=== PATIENT | female | born 1980 | race Caucasian/White ===

== ENCOUNTER 2018-10-06 15:05 | Emergency (ER) | payer BC ==
--- NOTE | 2018-10-06 15:17 | EDM.PDOC ---
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 came in for evaluation Onset: Today Duration: Hour(s):, Getting Worse Location: Reports: Face Quality: Reports: Ache, Pressure, Throbbing Severity: Mild Improves with: Reports: None Worsens with: Reports: None Associated Symptoms: Reports: No Other Symptoms 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: Acetaminophen, NSAIDS - Related Data Allergies Allergy/AdvReac Type Severity Reaction Status Date / Time adhesive Allergy Hives Verified 07/17/16 16:13 Home Meds: Home Meds Ibuprofen 1 tab PO Q6HR PRN 07/17/16 [History] Acetaminophen [Tylenol] 1,300 mg PO BID PRN 10/06/18 [History] Amoxicillin/Potassium Clav [Augmentin 875-125 Tablet] 1 each PO BID 7 Days #14 tablet 10/06/18 [Rx] Past Medical History 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: , 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 - Infectious Disease History Infectious Disease History: Reports: Chicken Pox - Past Surgical History GI Surgical History: Reports: Murtaza Fundoplication Musculoskeletal Surgical History: Reports: Other (See Below) Social & Family History - Caffeine Use Caffeine Use: Reports: Soda ED ROS GENERAL - Review of Systems Review Of Systems: See Below Constitutional: Reports: No Symptoms HEENT: Reports: No Symptoms Respiratory: Reports: No Symptoms Cardiovascular: Reports: No Symptoms Endocrine: Reports: No Symptoms GI/Abdominal: Reports: No Symptoms : Reports: No Symptoms Musculoskeletal: Reports: No Symptoms Skin: Reports: No Symptoms Neurological: Reports: No Symptoms Psychiatric: Reports: No Symptoms Hematologic/Lymphatic: Reports: No Symptoms Immunologic: Reports: No Symptoms ED EXAM, GENERAL - Physical Exam Exam: See Below Exam Limited By: No Limitations General Appearance: Alert Ears: Normal External Exam, Normal Canal, Hearing Grossly Normal, Normal TMs Nose: Normal Inspection Throat/Mouth: Other (Left upper molar pain to palpation and touch) Head: Atraumatic, Normocephalic Neck: Normal Inspection, Supple, Non-Tender, Full Range of Motion Respiratory/Chest: No Respiratory Distress, Lungs Clear, Normal Breath Sounds, No Accessory Muscle Use, Chest Non-Tender Cardiovascular: Normal Peripheral Pulses, Regular Rate, Rhythm, No Edema, No Gallop, No JVD, No Murmur, No Rub GI/Abdominal: Normal Bowel Sounds, Soft, Non-Tender, No Organomegaly, No Distention, No Abnormal Bruit, No Mass Rectal (Female) Exam: Deferred Back Exam: Normal Inspection, Full Range of Motion, NT Extremities: Normal Inspection, Normal Range of Motion, Non-Tender, Normal Capillary Refill, No Pedal Edema Neurological: Alert Psychiatric: Normal Affect, Normal Mood Skin Exam: Warm, Dry, Intact, Normal Color, No Rash Lymphatic: No Adenopathy Departure - Departure Time of Disposition: 15:25 Disposition: Home, Self-Care 01 Condition: Fair Clinical Impression: Pain due to dental caries - Discharge Information *PRESCRIPTION DRUG MONITORING PROGRAM REVIEWED*: No *COPY OF PRESCRIPTION DRUG MONITORING REPORT IN PATIENT JESSE: No (Patient referred to dentist of choice will start on Augmentin 875 twice a day for 10 days patient is to take Motrin 800 every 6 hours when necessary for pain) Referrals: Goldie Alonso PA [Primary Care Provider] -
== END 2018-10-06 15:33 | disposition home or self-care (01) ==
LOC: LL.ED 15:05
DX: K02.9 Dental caries, unspecified (principal); Z79.899 Other long term (current) drug therapy; Z91.09 Other allergy status, other than to drugs and biological substances
CPT/HCPCS: 99282

== ENCOUNTER 2019-10-28 14:57 | Emergency (ER) | payer BC ==
--- NOTE | 2019-10-28 16:15 | EDM.PDOC ---
ED HPI GENERAL MEDICAL PROBLEM - General Chief Complaint: Upper Extremity Injury/Pain Stated Complaint: left shoulder/chest pain Time Seen by Provider: 10/28/19 15:16 Source of Information: Reports: Patient History Limitations: Reports: No Limitations - History of Present Illness INITIAL COMMENTS - FREE TEXT/NARRATIVE: Patient comes to ER for evaluation of left upper back discomfort that radiates through upper chest. Started yesterday. Worse today. Worse when she takes a deep breath or lifts objects/uses left arm. 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 No history of similar pain in past. No other accompanying symptoms. Patient says main reason she came is due to pressure from her Mom to make certain this is not due to heart issues as two family members had heart attacks this past week. Otherwise patient was not planning on being seen for this. No personal history of heart disease. 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 Denies: Shortness of Breath, Cough , Sputum, Hemoptysis Cardiovascular: Reports: Chest Pain. Denies: Edema, Irregular Heart Rate, Lightheadedness, Palpitations, Syncope, Other GI/Abdominal: Reports: No Symptoms Genitourinary: Reports: No Symptoms Musculoskeletal: Reports: Shoulder Pain. Denies: Neck Pain, Arm Pain Skin: Reports: No Symptoms Neurological: Reports: Other (sometimes has a bit of sensation of numbness down left arm) Psychiatric: Reports: No Symptoms ED EXAM, GENERAL - Physical Exam Exam: See Below Exam Limited By: No Limitations General Appearance: Alert, WD/WN, No Apparent Distress Eye Exam: Bilateral Eye: EOMI, PERRL Ears: Hearing Grossly Normal Nose: No: Nasal Deformity, Nasal Swelling, Nasal Drainage Throat/Mouth: Normal Lips, Normal Voice, No Airway Compromise Head: Atraumatic, Normocephalic Neck: Supple, Non-Tender, Full Range of Motion. No: Tender Lateral, Tender Midline Respiratory/Chest: No Respiratory Distress, Lungs Clear, Normal Breath Sounds, No Accessory Muscle Use, Chest Non-Tender Cardiovascular: Regular Rate, Rhythm, No Murmur GI/Abdominal: Normal Bowel Sounds, Soft, Non-Tender, No Distention (Female) Exam: Deferred Rectal (Female) Exam: Deferred Back Exam: Other (tender with palpation around left scapula and above scapula, also near top of trapezius) Extremities: Normal Inspection, Normal Capillary Refill Neurological: Alert, Oriented, Normal Cognition, Normal Gait Psychiatric: Normal Affect, Normal Mood Skin Exam: Warm, Dry, Intact, Normal Color EKG INTERPRETATION EKG Date: 10/28/19 Time: 16:09 Rhythm: NSR Rate (Beats/Min): 86 Wisdom: Normal P-Wave: Present QRS: Normal ST-T: Other (no obvious ST changes noted suggestive of acute ischemia) QT: Normal Comparison: NA - No Prior EKG Course - Vital Signs Last Recorded V/S: Last Vital Signs Temp 36.8 C 10/28/19 15:01 Pulse 96 10/28/19 15:01 Resp 18 10/28/19 15:01 BP 128/92 H 10/28/19 15:01 Pulse Ox 98 10/28/19 15:01 - Orders/Labs/Meds Orders: Active Orders 24 hr Category Date Time Status EKG Documentation Completion [RC] ASDIRECTED Care 10/28/19 15:45 Active Labs: Laboratory Tests 10/28/19 Range/Units 15:46 Magnesium 2.3 (1.8-2.4) mg/dL Troponin I 0.000 (0.000-0.056) ng/mL - Re-Assessments/Exams Free Text/Narrative Re-Assessment/Exam: Patient only willing to have EKG performed and Troponin/Mg checked. Declined chest pain protocol and any other testing. She feels pain is musculo-skeletal in nature. Given history and exam this does appear to be most likely etiology for complaint. Main concern for patient was to be able to tell her Mom that these were normal/ be discharged from ER. No acute ST changes noted. Troponin and Mag normal. Precautions reviewed. Patient to follow up as needed if she has any additional problems/changes develop. Departure - Departure Time of Disposition: 16:54 Disposition: Home, Self-Care 01 Condition: Good Clinical Impression: Upper back pain on left side - Discharge Information *PRESCRIPTION DRUG MONITORING PROGRAM REVIEWED*: Not Applicable *COPY OF PRESCRIPTION DRUG MONITORING REPORT IN PATIENT JESSE: Not Applicable Referrals: Roma Graham PA-C [Primary Care Provider] - Forms: ED Department Discharge Additional Instructions: See how pain goes over next few days. Follow up as needed for sudden worsening or if it does not resolve this week. OK to take Aleve/Tylenol or ibuprofen. OK to try CBD oil (Ghanshyam's) Sepsis Event Note - Evaluation Sepsis Screening Result: No Definite Risk - Focused Exam Vital Signs: Vital Signs Temp Pulse Resp BP Pulse Ox 10/28/19 15:01 36.8 C 96 18 128/92 H 98 Date Exam was Performed: 10/28/19 Time Exam was Performed: 22:58 - My Orders Last 24 Hours: My Active Orders 10/28/19 15:45 EKG Documentation Completion [RC] ASDIRECTED - Assessment/Plan Last 24 Hours: My Active Orders 10/28/19 15:45 EKG Documentation Completion [RC] ASDIRECTED
== END 2019-10-28 17:00 | disposition home or self-care (01) ==
LOC: LL.ED 14:57
DX: M54.6 Pain in thoracic spine (principal); Z91.09 Other allergy status, other than to drugs and biological substances
CPT/HCPCS: 36415; 83735; 84484; 93005; 99283-25

== ENCOUNTER 2021-01-14 16:32 | Emergency (ER) | payer BC ==
[2021-01-14 17:46] LABS: ANION GAP 12.6 meq/L (7-15); CHLORIDE,CL 105 mmol/L (98-107); SODIUM,NA 140 mmol/L (136-145)
--- NOTE | 2021-01-14 18:16 | EDM.PDOC ---
ED HPI GENERAL MEDICAL PROBLEM - General Chief Complaint: Back Pain or Injury Stated Complaint: back pain Time Seen by Provider: 01/14/21 16:39 Source of Information: Reports: Patient History Limitations: Reports: No Limitations - History of Present Illness INITIAL COMMENTS - FREE TEXT/NARRATIVE: Patient comes to ER with right upper back pain present for several days. No new numbness/tingling. No anterior chest pain or abdominal pain. Pain worsens with certain upper body movements. No change with breathing. Denies injury but does work at [employer]/has physical job. Complains of sometimes feeling a popping sensation in the sore area as she moves. Tried Tylenol/no real help. 2/10 at rest. 7/10 with movement. No history of previous similar pain in that area but was seen in ER for left upper back pain a few years ago. Mid-back Pain Score (Numeric/FACES): 2 - Related Data Allergies Allergy/AdvReac Type Severity Reaction Status Date / Time adhesive Allergy Hives Verified 01/14/21 16:33 Home Meds: Home Meds Ibuprofen 1 tab PO Q6HR PRN 07/17/16 [History] Acetaminophen [Tylenol Extra Strength] 2,000 mg PO BEDTIME 01/14/21 [History] diphenhydrAMINE [Benadryl] 25 mg PO BEDTIME 01/14/21 [History] metFORMIN [Glucophage] 500 mg PO DAILY 01/14/21 [History] Past Medical History HEENT History: Reports: Sinusitis Gastrointestinal History: Reports: GERD HEAD OF DESIGN History: Reports: Other HEAD OF DESIGN History: , x 1 Musculoskeletal History: Reports: Osteoarthritis Endocrine/Metabolic History: Reports: Obesity/BMI 30+ - Infectious Disease History Infectious Disease History: Reports: Chicken Pox - Past Surgical History GI Surgical History: Reports: Appendectomy, Murtaza Fundoplication Other Endocrine Surgeries/Procedures: On Metformin daily for weightloss Musculoskeletal Surgical History: Reports: Other (See Below) Other Musculoskeletal Surgeries/Procedures:: Surgery to R arm, L hand Social & Family History - Tobacco Use Tobacco Use Status *Q: Never Tobacco User Second Hand Smoke Exposure: No - Caffeine Use Caffeine Use: Reports: Soda - Recreational Drug Use Recreational Drug Use: No ED ROS GENERAL - Review of Systems Review Of Systems: Comprehensive ROS is negative, except as noted in HPI. ED EXAM, GENERAL - Physical Exam Exam: See Below Exam Limited By: No Limitations General Appearance: Alert, No Apparent Distress, Obese Eye Exam: Bilateral Eye: EOMI, PERRL Ears: Hearing Grossly Normal Nose: No: Nasal Deformity, Nasal Swelling, Nasal Drainage Throat/Mouth: Normal Lips, Normal Voice, No Airway Compromise Head: Atraumatic, Normocephalic Neck: Normal Inspection, Supple, Non-Tender, Full Range of Motion Respiratory/Chest: No Respiratory Distress, Lungs Clear, Normal Breath Sounds, No Accessory Muscle Use, Other (anterior chest nontender) Cardiovascular: Regular Rate, Rhythm, No Murmur GI/Abdominal: Soft (Female) Exam: Deferred Rectal (Female) Exam: Deferred Back Exam: Other (has tenderness with palpation of soft tissue lateral right chest/under axilla and also medial to scapula/around scapula. Palpation reproduces pain complaint. Patient reports that lifting hands overhead does not make pain worse but trying to hold right arm straight laterally does make it worse. ). No: CVA Tenderness (L), CVA Tenderness (R) Extremities: Normal Range of Motion, Non-Tender, Normal Capillary Refill Neurological: Alert, Oriented, Normal Cognition, Normal Gait, No Motor/Sensory Deficits Psychiatric: Normal Affect, Normal Mood Skin Exam: Warm, Dry, Intact, Normal Color, No Rash Course - Vital Signs Last Recorded V/S: Last Vital Signs Temp 36.8 C 01/14/21 16:55 Pulse 96 01/14/21 16:55 Resp 20 01/14/21 16:55 BP 136/97 H 01/14/21 16:55 Pulse Ox 96 01/14/21 16:55 - Orders/Labs/Meds Orders: Active Orders 24 hr Category Date Time Status Thoracic Spine 3V [CR] Stat Exams 01/14/21 16:57 Taken Labs: Laboratory Tests 01/14/21 01/14/21 01/14/21 Range/Units 17:20 17:20 17:55 WBC 8.5 (4.0-10.2) K/uL RBC 5.25 H (3.77-5.09) M/uL Hgb 14.1 D (11.7-15.5) g/dL Hct 42.5 (34.0-46.0) % MCV 81.0 L D (84.0-98.0) fL MCH 26.9 L (28.2-33.3) pg MCHC 33.2 (31.7-36.0) g/dL RDW 14.9 H (11.2-14.1) % Plt Count 306 (150-350) K/uL Neut % (Auto) 66.3 (45.0-80.0) % Lymph % (Auto) 24.1 (10.0-50.0) % [place] % (Auto) 6.7 (2.0-14.0) % Eos % (Auto) 2.5 (0.0-5.0) % Baso % (Auto) 0.4 (0.0-2.0) % Neut # (Auto) 5.63 (1.40-7.00) K/uL Lymph # (Auto) 2.04 (0.50-3.50) K/uL [place] # (Auto) 0.57 (0.00-1.00) K/uL Eos # (Auto) 0.21 (0.00-0.50) K/uL Baso # (Auto) 0.03 (0.00-0.20) K/uL Sodium 140 (136-145) mmol/L Potassium 4.1 (3.5-5.1) mmol/L Chloride 105 (98-107) mmol/L Carbon Dioxide 22.4 (21.0-32.0) mmol/L Anion Gap 12.6 (7-15) meq/L BUN 11 (7-18) mg/dL Creatinine 0.83 (0.51-1.17) mg/dL Est Cr Clr Drug Dosing 68.67 mL/min Estimated GFR (MDRD) > 60 mL/min Glucose 93 (70-99) mg/dL Calcium 8.5 (8.5-10.1) mg/dL Magnesium 2.5 H (1.8-2.4) mg/dL Total Bilirubin 0.3 (0.2-1.0) mg/dL AST 15 (15-37) U/L ALT 30 (12-78) U/L Alkaline Phosphatase 69 (46-116) IU/L Total Protein 7.6 (6.4-8.2) g/dL Albumin 3.6 (3.4-5.0) g/dL Amylase 42 (25-115) U/L Lipase 113 (73-393) U/L Specimen Type Urinvoid Urine Color Yellow Urine Appearance Clear Urine pH 6.0 (5.0-9.0) Ur Specific [place] 1.020 (1.005-1.030) Urine Protein Negative (NEGATIVE) mg/dL Urine Glucose (UA) Negative (NEGATIVE) mg/dL Urine Ketones Negative (NEGATIVE) mg/dL Urine Occult Blood Negative (NEGATIVE) Urine Nitrite Negative (NEGATIVE) Urine Bilirubin Negative (NEGATIVE) Urine Urobilinogen 0.2 (0.2-1.0) E.U./dL Ur Leukocyte Esterase Negative (NEGATIVE) Urine RBC Not seen /HPF Urine WBC 0-5 /HPF Ur Epithelial Cells Few /LPF Urine Bacteria Few (NONE TO FEW) /HPF - Re-Assessments/Exams Free Text/Narrative Re-Assessment/Exam: 01/14/21 18:53 labs/thoracic xrays ordered. Labs overall unremarkable. Thoracic films show mild degenerative changes of spine. No CVA pain with palpation. Pain complaint is above area of kidneys, worse with palpation and movement of right shoulder/arm. Differential does not favor renal stone as cause. No abdominal pain. LFTs/amylase/lipase normal thus does not appear to be referred pain from a gall stone/pancreatitis. Given that palpation of soft tissue of side/back and movement does reproduce/worsen pain suspect soft tissue etiology. Patient is not interested in getting a RUQ US scheduled tomorrow (when differential was reviewed with her) to more fully rule out gallstones as contributor to pain. She declined Toradol/work note/muscle relaxants/stronger pain meds. Patient encouraged to follow up with her PCP for recheck and to consider referral to physical therapy to help with pain complaint. OK to continue Tylenol and/or Aleve or Ibuprofen. Patient is not a fan of chiropractors but was encouraged to consider chiropractic evaluation or massage/myofascial work to help with current pain issues. To follow up otherwise as needed. Departure - Departure Time of Disposition: 18:13 Disposition: Home, Self-Care 01 Condition: Good Clinical Impression: Upper back pain on right side - Discharge Information *PRESCRIPTION DRUG MONITORING PROGRAM REVIEWED*: Not Applicable *COPY OF PRESCRIPTION DRUG MONITORING REPORT IN PATIENT JESSE: Not Applicable Instructions: Acute Back Pain, Adult Referrals: Roma Graham PA-C [Primary Care Provider] - Forms: ED Department Discharge Additional Instructions: Follow up with your primary clinic for recheck and consider referral to PT if pain is not improving. Additional imaging may be needed if pain does not improve. Ice/rest/gentle stretching. Ibuprofen or Aleve for pain. Can also take Tylenol. Follow up also if you need work restrictions if pain starts to limit your ability to do your job well/job makes pain issues worse. Sepsis Event Note (ED) - Evaluation Sepsis Screening Result: No Definite Risk - Focused Exam Vital Signs: Vital Signs Temp Pulse Resp BP Pulse Ox 01/14/21 16:55 36.8 C 96 20 136/97 H 96 - My Orders Last 24 Hours: My Active Orders 01/14/21 16:57 Thoracic Spine 3V [CR] Stat - Assessment/Plan Last 24 Hours: My Active Orders 01/14/21 16:57 Thoracic Spine 3V [CR] Stat
== END 2021-01-14 18:30 | disposition home or self-care (01) ==
LOC: LL.ED 16:32
DX: M54.6 Pain in thoracic spine (principal); E66.9 Obesity, unspecified; Z68.41 Body mass index [BMI] 40.0-44.9, adult; Z91.048 Other nonmedicinal substance allergy status; Z79.84 Long term (current) use of oral hypoglycemic drugs
CPT/HCPCS: 36415; 72072; 80053; 81001; 82150; 83690; 83735; 85025; 99283; 99283-25

== ENCOUNTER 2024-08-07 00:27 | Emergency (ER) | payer BC ==
[2024-08-07] MEDS: Lidocaine 1% 5 ML VIAL INJECT ONE (01:18)
[2024-08-07] MEDS: Bupivacaine 0.5% 10 ML SDV INJECT ONE (01:18)
[2024-08-07] MEDS: Take Home: oxyCODONE HCl 5 MG Tab, 5 Tab Pack PO ONE (01:26)
[2024-08-07 01:29] VITALS: BP 154/92; PULSE 91
== END 2024-08-07 01:40 | disposition home or self-care (01) ==
LOC: LL.ED 00:27
DX: K08.89 Other specified disorders of teeth and supporting structures (principal); E66.9 Obesity, unspecified; Z90.49 Acquired absence of other specified parts of digestive tract; Z91.048 Other nonmedicinal substance allergy status; Z79.84 Long term (current) use of oral hypoglycemic drugs; Z79.899 Other long term (current) drug therapy
CPT/HCPCS: 99282; A9270-GY